=== PATIENT | male | born 1990 | race African-American/Black ===

== ENCOUNTER 2024-04-06 15:48 | Emergency (ER) | payer BC, SELFPAY ==
--- NOTE | ~2024-04-06 | XR_ITS ---
EXAMINATION: XR chest 2V DATE: 04/06/2024 19:27 INDICATION: Upper respiratory infection. Cough. TECHNIQUE: Frontal and lateral views of the chest were obtained. COMPARISON: None. FINDINGS: There is no pneumonia, pleural effusion, or pneumothorax. The heart size is normal. IMPRESSION: 1. No acute cardiopulmonary disease. Reviewed, dictated and finalized at location A. ESSING SUPERVISOR
[2024-04-06 16:08] VITALS: BP 159/91; PULSE 79; RESP 16; TEMP 36.3; O2SAT 100
[2024-04-06 19:16] LABS: Influenza A QL RT-PCR Negative (Negative); Influenza B QL RT-PCR Negative (Negative); RSV RNA, RT-PCR Negative (Negative); SARS-CoV-2 RNA PCR Positive (Negative)
--- NOTE | 2024-04-06 19:29 | ED.URI ---
HPI - URI/Sore Throat General Chief Complaint: Upper Respiratory Infection Stated Complaint: sinus infection Time Seen by Provider: 04/06/24 18:31 Source: patient Mode of arrival: ambulatory Limitations: no limitations History of Present Illness HPI Narrative: Patient is a 33-year-old male who presents the ED with report of URI symptoms. Patient reports he has been sick for the last 4-5 days with mild cough, congestion, sinus pressure and drainage, postnasal drip. Denies known fever. Denies shortness of breath. Denies known sick contacts. Has been taking [id number]-[id number] medicines without improvement. States he is prone to sinus infections. He also reports having some redness and drainage from his right eye since this morning. Denies vision changes or eye pain. Related Data Allergies Allergy/AdvReac Type Severity Reaction Status Date / Time No Known Allergies Allergy Verified 04/06/24 15:49 Review of Systems Review of Systems: All systems reviewed & are unremarkable except as noted in HPI. All systems reviewed & are unremarkable except as noted in HPI and below Exam Narrative: GENERAL: Well appearing, well-nourished, non-toxic, in no acute distress. HEAD: Normocephalic, atraumatic. EYES: PERRL/EOMI. Very slight conjunctival injection to R lateral eye. Some serous drainage from eye. No purulent drainage. ENT: Mild posterior pharynx erythema, no tonsillar hypertrophy or exudate. Uvula is midline and nonedematous. TMs are clear bilaterally. No evidence of AOE/AOM. RESPIRATORY: Airway patent, respirations nonlabored. Clear to auscultation bilaterally, no rales, rhonchi, wheezing. CARDIOVASCULAR: Regular rate and rhythm without murmurs, rubs, or gallops. MUSCULOSKELETAL: Moves all extremities. No gross deformities. SKIN: Warm, dry, normal color. NEURO: A&O X3. Speech clear. PSYCHIATRIC: Appropriate mood and affect. Normal interaction. Course Vital Signs Vital signs: Vital Signs Temperature 97.4 F L 04/06/24 16:08 Pulse Rate 79 04/06/24 16:08 Respiratory Rate 16 04/06/24 16:08 Blood Pressure 159/91 H 04/06/24 16:08 Pulse Oximetry 100 04/06/24 16:08 Oxygen Delivery Room Air 04/06/24 16:08 Temperature 97.4 F L 04/06/24 16:08 Pulse Rate 79 04/06/24 16:08 Respiratory Rate 16 04/06/24 16:08 Blood Pressure 159/91 H 04/06/24 16:08 Pulse Oximetry 100 04/06/24 16:08 Oxygen Delivery Room Air 04/06/24 16:08 MDM - URI/Sore Throat MDM Narrative Medical decision making narrative: Patient presented to ED with 4-5 day history of URI symptoms. Vital signs are stable. He is afebrile. COVID testing is positive. This is consistent with clinical picture. Chest x-ray is clear. Patient reporting some serous drainage from right eye. Will treat for conjunctivitis, though advised this is likely viral. He is denying any vision changes or eye pain. Discussed further supportive therapy, will prescribe Tessalon Perles. Recommended close follow-up with PCP for further evaluation, discussed quarantine guidelines, strict return precautions. Patient in agreement with plan. Discharged in stable condition. Medical Records Attestation: I reviewed the patient's medical records. Lab Data Attestation: I reviewed the patient's lab results. Labs: Lab Results 04/06/24 Range/Units 18:34 Influenza A (RT-PCR) Negative (Negative) Influenza B (RT-PCR) Negative (Negative) RSV (RT-PCR) Negative (Negative) SARS-CoV-2 RNA (RT-PCR) Positive A (Negative) Imaging Data Attestation: I personally reviewed and interpreted this imaging study as follows: Radiologist's impression: ITS Impressions Chest X-Ray 04/06/24 19:30 IMPRESSION: 1. No acute cardiopulmonary disease. Discharge Plan Discharge Clinical Impression: COVID-19 Conjunctivitis Qualifiers: Conjunctivitis type: unspecified Laterality: right Qualified Code(s): H10.9 - Unspecified conjunctivitis Patient Disposition: Home, Self-Care Condition: Stable Instructions: Antibiotic Form, Cold Symptoms (ED), COVID-19 (Coronavirus Disease 2019) (ED), How to Recover from COVID-19 at Home (ED) Additional Instructions: You were diagnosed with COVID-19 today. Isolate at home as you are contagious. Utilize antibiotic eye drops for possible eye infection/pink eye. Stay well-hydrated at home. Recommend electrolyte rich fluids, Gatorade, Pedialyte, body armor. Tessalon Perles as needed for cough. Tylenol and Ibuprofen for discomfort and/or fevers. Recommend [id number] cough and cold medicines for symptom relief, Delsym, Mucinex, DayQuil, NyQuil, Sudafed, Robitussin, TheraFlu. Follow with primary care doctor upon resolution of symptoms. Return to the ED if you experience chest pain, difficulty breathing, unable to keep down food or drink, severe pain, or any other symptoms of concern. Patient Language: American Prescriptions: New benzonatate 200 mg capsule 200 mg PO TID PRN (Reason: cough) Qty: 15 0RF ofloxacin 0.3 % drops 2 drp EACH EYE QID Qty: 5 0RF Follow-up/Referrals: Adams Alonso DO [Physician] - (PRIMARY CARE) PHYSICIAN,R[employer]ARY DRIER OPERATOR [Primary Care Provider] - Time of Disposition: 19:44
== END 2024-04-06 19:45 | disposition home or self-care (01) ==
PROVIDERS: Emergency Provider Physician Assistant
DX: U07.1 COVID-19 (principal); H10.9 Unspecified conjunctivitis
CPT/HCPCS: 71046; 87637; 99283